=== PATIENT | male | born 1965 | race Caucasian/White ===

== ENCOUNTER 2019-01-01 12:47 | Outpatient (REF) | payer BC, SELFPAY ==
[2019-01-01 14:37] LABS: HCT 55.3 % (40.0-50.0); HGB 17.9 g/dL (13.5-17.5); Mean Corp. HGB Concentration 32.4 g/dL (32.0-36.0); Mean Corpuscular Hemoglobin 30.2 pg (27.0-33.0); Mean Corpuscular Volume 93.4 fL (80-95); Mean Platelet Volume 9.9 fL (8.0-11.0); Platelet Count 264 x1000/uL (130-400); RBC 5.92 m/cumm (4.50-6.00); RBC Distribution Width 12.6 % (11.8-14.1); White Blood Cell Count 8.08 k/cumm (4.4-10.8)
[2019-01-01 14:52] LABS: ALT 56 U/L (12-78); AST 30 U/L (15-37); Albumin 3.9 g/dL (3.4-5.0); Alkaline Phosphatase 85 U/L (46-116); Anion Gap 8.7 mmol/L (3-11); BUN 14 mg/dL (7-18); Bilirubin, Total 0.6 mg/dL (0.2-1.0); CO2 29.3 mmol/L (21.0-32.0); CREATININE 1.09 mg/dL (0.70-1.30); Calcium 9.3 mg/dL (8.5-10.1); Chloride 101 mmol/L (98-107); Cholesterol 170 mg/dL (50-200); Glucose 97 mg/dL (70-100); HDL Cholesterol 37 mg/dL (40-60); LDL CHOLESTEROL 123 mg/dL (<100); Potassium 4.1 mmol/L (3.5-5.1); Sodium 139 mmol/L (136-145); Total Protein 7.6 g/dL (6.4-8.2); Triglyceride 88 mg/dL (30-150)
[2019-01-05 14:45] LABS: Testosterone, Free 10.7 ng/dL (3.87-14.7); Testosterone, Total 369 ng/dL (240-950)
== END 2019-01-01 13:07 ==
LOC: NCHCN 12:47
PROVIDERS: PCP Nurse Practitioner Family; Visit Provider Family Medicine
DX: E29.1 Testicular hypofunction (principal); I10 Essential (primary) hypertension; E66.9 Obesity, unspecified
CPT/HCPCS: 80053; 80061; 83721; 84402; 84403; 85027

== ENCOUNTER 2020-05-19 12:39 | Outpatient (REF) | payer BC, SELFPAY ==
[2020-05-19 21:31] LABS: HGB 18.7 g/dL (13.5-17.5); MCH 30.2 pg (27.0-33.0); MCHC 32.1 % (32.0-36.0); MCV 93.9 fL (80-95); MPV 9.4 fL (8.0-11.0); Platelet Count 258 10^3/uL (130-400); RDW 12.1 % (11.8-14.1); RDW-SD 41.8 fL; WBC 8.48 10^3/uL (4.4-10.8)
[2020-05-19 21:47] LABS: HCT 58.2 % (40.0-50.0)
[2020-05-19 21:49] LABS: ALT 45 U/L (16-63); AST 34 U/L (15-37); Alkaline Phosphatase 72 U/L (46-116); Anion Gap 6.9 mmol/L (3-11); BUN 14 mg/dL (7-18); Bilirubin, Total 0.8 mg/dL (0.2-1.0); CO2 30.1 mmol/L (21.0-32.0); Calcium 9.3 mg/dL (8.5-10.1); Calculated LDL 121 mg/dL (<100); Chloride 102 mmol/L (98-107); Cholesterol 188 mg/dL (<200); Glucose 98 mg/dL (74-106); HDL Cholesterol 37 mg/dL (40-60); Potassium 4.3 mmol/L (3.5-5.1); Sodium 139 mmol/L (136-145); Total Protein 7.8 g/dL (6.4-8.2); Triglyceride 154 mg/dL (<150)
[2020-05-22 12:42] LABS: PSA, Screening 0.5 ng/mL (0.0-3.5)
[2020-05-26 15:05] LABS: Testosterone, Free 20.2 ng/dL (3.87-14.7); Testosterone, Total 775 ng/dL (240-950)
== END 2020-05-19 12:59 ==
LOC: NCHCN 12:39
PROVIDERS: PCP Nurse Practitioner Family; Visit Provider Family Medicine
DX: Z00.00 Encounter for general adult medical examination without abnormal findings (principal); I10 Essential (primary) hypertension; E29.1 Testicular hypofunction; C44.310 Basal cell carcinoma of skin of unspecified parts of face; E66.9 Obesity, unspecified; Z12.5 Encounter for screening for malignant neoplasm of prostate
CPT/HCPCS: 80053; 80061; 84153; 84402; 84403; 85027

== ENCOUNTER 2020-12-27 15:55 | Outpatient (CLI) | payer BC, SELFPAY ==
[2020-12-27 16:15] LABS: Abs Immature Grans 0.04 10^3/uL (0.0-0.06); Absolute Basophil Count 0.07 10^3/uL (0.0-0.2); Absolute Eosinophil Count 0.23 10^3/uL (0.0-0.7); Absolute Lymphocyte Count 2.65 10^3/uL (1.2-3.4); Absolute Monocyte Count 0.98 10^3/uL (0.1-0.8); Absolute Neutrophil Count 7.44 10^3/uL (1.2-6.7); Basophils % 0.6; HCT 51.5 % (40.0-50.0); HGB 17.3 g/dL (13.5-17.5); Immature Grans % 0.4; Lymphocytes % 23.2; MCH 30.9 pg (27.0-33.0); MCHC 33.6 % (32.0-36.0); MCV 92.1 fL (80-95); MPV 8.7 fL (8.0-11.0); Monocytes % 8.6; Neutrophils % 65.2; Nucleated RBC 0 %; Platelet Count 272 10^3/uL (130-400); RBC 5.59 10^6/uL (4.36-5.78); RDW 11.8 % (11.8-14.1); RDW-SD 40.3 fL; WBC 11.41 10^3/uL (4.4-10.8)
== END 2020-12-27 15:56 | disposition home or self-care (01) ==
PROVIDERS: PCP Nurse Practitioner Family; Visit Provider Internal Medicine Hematology & Oncology
DX: D75.1 Secondary polycythemia (principal)
CPT/HCPCS: 36415; 85025

== ENCOUNTER 2020-12-28 13:47 | Emergency (ER) | payer BC, SELFPAY ==
[2020-12-28 14:03] VITALS: BP 162/88; PULSE 80; RESP 18; TEMP 36.3; O2SAT 95
--- NOTE | 2020-12-28 14:07 | ED.GENADUL_ITS ---
Discharge Plan Disposition Patient Disposition: HOME Condition: Stable Discharge Details Clinical Impression: Flank pain Primary Care Provider: Tiffany Gooden ED Provider: Kj Oglesby Home Meds and New Rx's Prescriptions: New cyclobenzaprine 7.5 mg tablet 7.5 mg PO TID PRNQty: 10 RF: 0 naproxen [Naprosyn] 500 mg tablet 500 mg PO BID PRNQty: 20 RF: 0 Continued multivitamin Tablet 1 tab PO DAILY RF: 0 lisinopril 20 mg Tablet 20 mg PO DAILY RF: 0 aspirin 81 mg Tablet,Delayed Release (Dr/Ec) 81 mg PO DAILY RF: 0 testosterone 1 % (25 mg/2.5gram) Gel In Packet 1 packet TRANSDERMAL DAILY RF: 0 Discontinued ibuprofen [Advil] 200 MG tablet 400 mg PO DIRECTED RF: 0 Discharge Instructions Instructions: Flank Pain (ED) Additional Instructions: Urinalysis and CT unremarkable. Naprosyn and Flexeril as directed. Remember Flexeril may cause drowsiness. Gentle stretching as tolerated. Cool and/or warm compresses every 2 hours for 20 minutes. Please watch for new or worsening symptoms and return to the ER for any concerns. Lastly, I do recommend reaching out your primary care provider and following up in the next week for reevaluation. Discharge Data Discharge Date/Time-TO BE ENTERED AT DEPARTURE: 12/28/20 17:06 Medical Decision Making <Rebecca Veloz - Last Filed: 12/29/20 12:41> 55-year-old male presents to the ER chief complaint of right flank pain which has been ongoing for approximately 3 weeks worse today. He reports posterior right flank pain which radiates around to his right anterior abdomen. Denies any nausea vomiting no diarrhea. He denies any problems urinating blood in his urine or dark urine. Denies any fever or chills. He reports is a dull constant pain which increases with movement and heavy lifting. At this time I do suspect musculoskeletal, will get a urine sample and CT abdomen pelvis without contrast to rule out kidney stone. Urinalysis was negative for leukocytes nitrites or blood Patient reevaluation: States pain is much improved after Flexeril and ibuprofen. Discussed pending CT results with patient who verbalizes understanding. At this time CT result is pending. Care is to be handed off to oncoming provider KONSTANTIN Hunter pending CT results. Patient reevaluation, <KONSTANTIN Negro - Last Filed: 12/28/20 17:02> This is a 55-year-old gentleman who was signed out to me by my colleague SHAHLA Veloz at shift change. Please see her original HPI and examination. In short patient reports right flank pain is worse with movement for the past couple of weeks. He denies any other symptoms. Patient was given a muscle relaxer and anti-inflammatory and reports to me that his pain was initially a 7 out of 10 and now is barely there is a 1 out of 10. He states the pain is worse with movement. Denies fever, chest pain, nausea, vomiting, dysuria, hematuria. Urinalysis was unremarkable, at time of signout awaiting CT imaging. CT imaging, renal colic protocol, read by radiology as the gallbladder surgically absent. The biliary tree is not dilated. Hepatic steatosis noted. No renal calculi nor dilatation of the collecting system. There are a few shotty lymph nodes in the right iliac chain. No gross lymphadenopathy in the abdomen or pelvis. No ascites. CT imaging discussed with patient. He is relieved and has no additional questions or concerns. He is comfortable treating this as musculoskeletal for the time being and if symptoms worsen or evolve he will return to the ER. Otherwise he will contact his primary care provider for outpatient reevaluation. Medical Records Medical records reviewed: Yes I reviewed the patient's medical records. HPI <Rebecca Veloz - Last Filed: 12/29/20 12:41> General Mode of arrival: ambulatory . Date/Time Provider Initiated Documentation: 12/28/20 14:06 . Limitations to Documentation: no limitations . Information obtained by: patient . HPI Narrative: 55-year-old male presents to the ER chief complaint of right flank pain which has been ongoing for approximately 3 weeks worse today. He reports posterior right flank pain which radiates around to his right anterior abdomen. Denies any nausea vomiting no diarrhea. He denies any problems urinating blood in his urine or dark urine. Denies any fever or chills. He reports is a dull constant pain which increases with movement and heavy lifting. Related Data Home Medications Medication Instructions Recorded Confirmed aspirin 81 mg PO DAILY 12/28/20 12/28/20 cyclobenzaprine 7.5 mg PO TID PRN #10 tab 12/28/20 lisinopril 20 mg PO DAILY 12/28/20 12/28/20 multivitamin 1 tab PO DAILY 12/28/20 12/28/20 naproxen [Naprosyn] 500 mg PO BID PRN #20 tab 12/28/20 testosterone 1 packet TRANSDERMAL DAILY 12/28/20 12/28/20 Previous Rx's Medication Instructions Recorded cyclobenzaprine 7.5 mg PO TID PRN #10 tab 12/28/20 naproxen [Naprosyn] 500 mg PO BID PRN #20 tab 12/28/20 Allergies Allergy/AdvReac Type Severity Reaction Status Date / Time No Known Allergies Allergy Unverified 04/02/13 20:11 General Stated Complaint: FlankPain MARQUEZ: 3 Review of Systems <Rebecca Veloz - Last Filed: 12/29/20 12:41> Narrative: Constitutional: Negative for weight loss, alert and oriented, well groomed, obese body habitus, appears comfortable. HEENT: Denies trauma, headaches, blurry vision, nasal discharge, sore throat, trouble swallowing. Chest: Denies chest pain, palpitations, irregular rhythm, hypertension. Respiratory: Denies Shortness of breath, cough, hemoptysis. GI: Denies nausea, vomiting, diarrhea, constipation. Musculoskeletal:Right flank pain which radiates to quadrant. Increased pain with movement. Does endorse heavy lifting recently. : Denies dysuria, hematuria, flank pain, rectal bleeding. Neuro: Denies dizziness, blurry vision, weakness, syncope, headache or facial numbness. Hematologic: Denies easy bruising, intolerance to heat or cold, hair loss. PFSH <Rebecca Veloz - Last Filed: 12/29/20 12:41> Social History Smoking/Tobacco Use Status: Never Smoking risk assessment performed?: Yes Drug use: Never Do you feel safe at home: Yes Do you feel safe in your relationship?: Yes Exam <Rebecca Veloz - Last Filed: 12/29/20 12:41> Narrative Exam Narrative: Constitutional: Alert and oriented x3. Appears stated age. Normal body habitus. Head: Normocephalic, no trauma. Eyes: Pupils PERRLA, Red reflex noted, EOM's intact. Eyelids symmetrical without lesions, discharge, or swelling. ENT: Bilateral TM's WNL, External ear normal to inspection, no mastoid TTP, swelling, or erythema, Nasal turbinates WNL, no nasal discharge. Normal dentition, Posterior pharynx WNL, no exudate. Chest: RRR, Normal S1, S2, distal pulses intact. Resp: Lungs clear to auscultation bilaterally, no wheezes, rales, or rhonchi. Abdomen: Soft, nontender to palpation. Musculoskeletal: Normal gait, 5/5 strength to all four extremities. No midline T or L-spine tenderness Skin: No suspicious rashes or lesions. Capillary refill less than 2 sec. Neurologic: Cranial nerves II-XII intact. Alert and oriented x 3. DTR's intact. Hematologic/Lymphatic: No ecchymosis, no lymphadenopathy. Course <Rebecca Veloz - Last Filed: 12/29/20 12:41> Vital Signs Vital signs: Vital Signs Temperature 36.3 C L 12/28/20 14:03 Pulse 80 12/28/20 14:03 Respiratory Rate 18 12/28/20 14:03 Blood Pressure 162/88 H 12/28/20 14:03 Pulse Oximetry 95 12/28/20 14:03 Temperature 36.3 C L 12/28/20 14:03 Temperature Source Skin 12/28/20 14:03 Pulse 80 12/28/20 14:03 Respiratory Rate 18 12/28/20 14:03 Blood Pressure 162/88 H 12/28/20 14:03 Blood Pressure Position Sitting 12/28/20 14:03 Pulse Oximetry 95 12/28/20 14:03 Oxygen Delivery Method Room Air 12/28/20 14:03 Oxygen Flow Rate 0 12/28/20 14:03 Pain Level 5 12/28/20 14:03 Sign Out <Rebecca Veloz - Last Filed: 12/29/20 12:41> Sign Out Data: Sign Out Comment: Pending CT renal Colic, Suspect Musculoskeletal Last updated by Rebecca Veloz at 12/28/20 16:11
[2020-12-28 14:24] LABS: Bilirubin Negative (Negative); Blood Negative (Negative); Clarity Clear (Clear); Glucose Negative (Negative); Ketones Negative (Negative); Leukocyte Esterase Negative (Negative); Nitrite Negative (Negative); Specific Gravity 1.015 (1.005-1.025); Urobilinogen 0.2 EU/dL (Up TO 0.2)
--- NOTE | 2020-12-28 14:29 | DI.CT_ITS ---
Exam(s) CT RENAL COLIC WO EXAM: CT RENAL COLIC WO CLINICAL HISTORY: Right flank pain. TECHNIQUE: Imaging Protocol: Axial computed tomography images with coronal and sagittal reformatted images were created and reviewed CONTRAST MATERIAL: Intravenous: none Oral: None COMPARISON: CT CHEST ABD PELVIS WITH CONTRAST from 04/03/2013 CT CHEST ABD PELVIS WITH CONTRAST from 04/03/2013 FINDINGS: VISUALIZED LUNG BASES: No nodules nor pleural effusions evident. ABDOMEN: There is no ascites. LIVER: Liver is somewhat dense implying an element of steatosis. There are no obvious discrete focal hepatic lesions evident on this noninfused study. GALLBLADDER/BILIARY: Gallbladder surgically absent. CBD is not dilated. PANCREAS: No evidence of pancreatic mass nor dilatation of the pancreatic duct. SPLEEN: Spleen is not enlarged. No obvious intrasplenic lesions. ADRENALS: There are no significant adrenal masses. KIDNEYS:No cysts evident. No solid renal masses. No calculi nor hydronephrosis. . ABDOMINAL AORTA: Abdominal aorta is not enlarged. LYMPH NODES: There is no retroperitoneal nor paraaortic adenopathy. ABDOMINAL WALL/GI: No evidence of significant anterior abdominal wall hernia. No bowel obstruction. PELVIS: LYMPH NODES: Few small shoddy lymph nodes are noted in the right iliac chain. No gross lymphadenopat hy in the pelvis and inguinal regions. GI: No evidence of appendicitis.No evidence of sigmoid diverticulitis. URINARY BLADDER: Urinary bladder wall is uniformly slightly thickened. No diverticuli. No obvious a symmetric mass. No calculi in nondistended urinary bladder. REPRODUCTIVE: Calcifications noted in the right side of the prostate gland. Prostate gland itself is upper normal size. Seminal vesicles unremarkable. OSSEOUS: No significant osseous lesions. Chronic disc space narrowing L5-S1 level. IMPRESSION: 1. The gallbladder surgically absent. The biliary tree is not dilated. 2. Hepatic steatosis noted. 3. No renal calculi nor dilatation of the collecting systems. There are few shotty lymph nodes in the right iliac chain. No gross lymphadenopathy in the abdomen p christophe. No ascites. RADIATION DOSE DELIVERED: 1,407.76mGy.cm Total DLP DATA REPOSITORY: All CT scans at this facility are submitted to the National Radiology Data Registry (NRDR) Dose Index Registry (DIR) with the [employer] (A[employer]). RADIATION OPTIMIZATION: All CT scans at this facility use at least one of these dose optimization te chniques: automated exposure control; mA and/or kV adjustment per patient size (includes targeted exa ms where dose is matched to clinical indication); or iterative reconstruction.
[2020-12-28] MEDS: Cyclobenzaprine 10 MG TAB PO (15:01)
[2020-12-28] MEDS: Ibuprofen 800 MG TAB PO (15:01)
== END 2020-12-28 17:06 | disposition home or self-care (01) ==
PROVIDERS: Registered Nurse Emergency; Emergency Provider Physician Assistant; PCP Nurse Practitioner Family
DX: M54.5 Low back pain (principal)
CPT/HCPCS: 99284; 74176; 81003

== ENCOUNTER 2021-03-21 13:08 | Outpatient (CLI) | payer BC, SELFPAY ==
[2021-03-21 10:03] LABS: Abs Immature Grans 0.04 10^3/uL (0.0-0.06); Absolute Basophil Count 0.05 10^3/uL (0.0-0.2); Absolute Eosinophil Count 0.16 10^3/uL (0.0-0.7); Absolute Lymphocyte Count 2.06 10^3/uL (1.2-3.4); Absolute Monocyte Count 0.84 10^3/uL (0.1-0.8); Absolute Neutrophil Count 5.76 10^3/uL (1.2-6.7); Basophils % 0.6; Eosinophils % 1.8; HCT 51.9 % (40.0-50.0); HGB 17.3 g/dL (13.5-17.5); Immature Grans % 0.4; Lymphocytes % 23.1; MCH 30.8 pg (27.0-33.0); MCHC 33.3 % (32.0-36.0); MCV 92.5 fL (80-95); MPV 8.8 fL (8.0-11.0); Monocytes % 9.4; Neutrophils % 64.7; Nucleated RBC 0 %; Platelet Count 243 10^3/uL (130-400); RBC 5.61 10^6/uL (4.36-5.78); RDW 11.7 % (11.8-14.1); RDW-SD 39.9 fL; WBC 8.91 10^3/uL (4.4-10.8)
[2021-03-21 10:15] LABS: ALT 33 U/L (16-63); AST 17 U/L (15-37); Albumin 3.7 g/dL (3.4-5.0); Alkaline Phosphatase 71 U/L (46-116); Anion Gap 6.3 mmol/L (3-11); BUN 13 mg/dL (7-18); Bilirubin, Total 0.6 mg/dL (0.2-1.0); CO2 27.7 mmol/L (21.0-32.0); CREATININE 1.1 mg/dL (0.70-1.30); Chloride 104 mmol/L (98-107); Glucose 109 mg/dL (74-106); Potassium 4.2 mmol/L (3.5-5.1); Sodium 138 mmol/L (136-145); Total Protein 7.8 g/dL (6.4-8.2)
[2021-03-22 15:22] LABS: Erythropoietin 7.7 mIU/mL (2.6 - 18.5)
[2021-03-29 09:22] LABS: Testosterone, Total 514 ng/dL (240-950)
== END 2021-03-21 13:09 | disposition home or self-care (01) ==
LOC: LBO 13:09
PROVIDERS: PCP Nurse Practitioner Family; Visit Provider Internal Medicine Hematology & Oncology
DX: D75.1 Secondary polycythemia (principal)
CPT/HCPCS: 36415; 80053; 82668; 84402; 84403; 85025

== ENCOUNTER 2021-05-24 09:52 | Outpatient (REF) | payer BC, SELFPAY ==
[2021-05-24 21:12] LABS: ALT 36 U/L (16-63); AST 23 U/L (15-37); Albumin 3.9 g/dL (3.4-5.0); Alkaline Phosphatase 70 U/L (46-116); Anion Gap 9.6 mmol/L (3-11); BUN 19 mg/dL (7-18); Bilirubin, Total 0.6 mg/dL (0.2-1.0); CO2 27.4 mmol/L (21.0-32.0); Calcium 9.3 mg/dL (8.5-10.1); Calculated LDL 94 mg/dL (<100); Chloride 104 mmol/L (98-107); Cholesterol 160 mg/dL (<200); Glucose 97 mg/dL (74-106); HDL Cholesterol 40 mg/dL (40-60); Potassium 4.5 mmol/L (3.5-5.1); Sodium 141 mmol/L (136-145); Total Protein 7.4 g/dL (6.4-8.2); Triglyceride 131 mg/dL (<150)
== END 2021-05-24 09:53 | disposition home or self-care (01) ==
LOC: NCHCN 09:52
PROVIDERS: PCP Nurse Practitioner Family; Visit Provider Family Medicine
DX: Z00.00 Encounter for general adult medical examination without abnormal findings (principal); I10 Essential (primary) hypertension; E66.9 Obesity, unspecified
CPT/HCPCS: 80053; 80061

== ENCOUNTER 2021-06-04 03:59 | Outpatient (CLI) | payer BC, SELFPAY ==
[2021-06-04 07:17] LABS: Abs Immature Grans 0.02 10^3/uL (0.0-0.06); Absolute Basophil Count 0.04 10^3/uL (0.0-0.2); Absolute Neutrophil Count 4.54 10^3/uL (1.2-6.7); Basophils % 0.5; Eosinophils % 2.7; HCT 48.8 % (40.0-50.0); HGB 15.9 g/dL (13.5-17.5); Immature Grans % 0.3; Lymphocytes % 27.4; MCH 30.5 pg (27.0-33.0); MCHC 32.6 % (32.0-36.0); MCV 93.7 fL (80-95); Monocytes % 6.8; Neutrophils % 62.3; Nucleated RBC 0 %; Platelet Count 204 10^3/uL (130-400); RBC 5.21 10^6/uL (4.36-5.78); RDW 11.5 % (11.8-14.1); RDW-SD 39.7 fL
[2021-06-04 08:49] LABS: ALT 30 U/L (16-63); AST 20 U/L (15-37); Albumin 3.8 g/dL (3.4-5.0); Alkaline Phosphatase 73 U/L (46-116); Anion Gap 5.4 mmol/L (3-11); BUN 19 mg/dL (7-18); Bilirubin, Total 0.6 mg/dL (0.2-1.0); CO2 32.6 mmol/L (21.0-32.0); CREATININE 1.1 mg/dL (0.70-1.30); Calcium 8.9 mg/dL (8.5-10.1); Chloride 102 mmol/L (98-107); Glucose 121 mg/dL (74-106); Potassium 4.1 mmol/L (3.5-5.1); Sodium 140 mmol/L (136-145); Total Protein 7.5 g/dL (6.4-8.2)
[2021-06-05 20:08] LABS: Erythropoietin 6.5 mIU/mL (2.6 - 18.5)
[2021-06-20 08:55] LABS: Testosterone, Free 4.86 ng/dL (3.87-14.7); Testosterone, Total 180 ng/dL (240-950)
== END 2021-06-04 04:00 | disposition home or self-care (01) ==
LOC: LBO 03:59
PROVIDERS: PCP Nurse Practitioner Family; Visit Provider Internal Medicine Hematology & Oncology
DX: D75.1 Secondary polycythemia (principal)
CPT/HCPCS: 36415; 80053; 82668; 84402; 84403; 85025

== ENCOUNTER 2022-01-01 02:09 | Outpatient (CLI) | payer BC, SELFPAY ==
[2022-01-01 13:06] LABS: Abs Immature Grans 0.05 10^3/uL (0.0-0.06); Absolute Basophil Count 0.07 10^3/uL (0.0-0.2); Absolute Eosinophil Count 0.24 10^3/uL (0.0-0.7); Absolute Lymphocyte Count 2.38 10^3/uL (1.2-3.4); Absolute Monocyte Count 0.92 10^3/uL (0.1-0.8); Absolute Neutrophil Count 6.22 10^3/uL (1.2-6.7); Basophils % 0.7; Eosinophils % 2.4; HCT 46.9 % (40.0-50.0); HGB 15.1 g/dL (13.5-17.5); Immature Grans % 0.5; Lymphocytes % 24.1; MCH 30.8 pg (27.0-33.0); MCHC 32.2 % (32.0-36.0); MCV 96 fL (80-95); MPV 8.7 fL (8.0-11.0); Monocytes % 9.3; Platelet Count 241 10^3/uL (130-400); RBC 4.91 10^6/uL (4.36-5.78); RDW 11.8 % (11.8-14.1); RDW-SD 41.1 fL; WBC 9.88 10^3/uL (4.4-10.8)
[2022-01-01 13:21] LABS: ALT 32 U/L (16-63); AST 20 U/L (15-37); Albumin 3.9 g/dL (3.4-5.0); Alkaline Phosphatase 84 U/L (46-116); BUN 22 mg/dL (7-18); Bilirubin, Total 0.7 mg/dL (0.2-1.0); Calcium 8.9 mg/dL (8.5-10.1); Chloride 102 mmol/L (98-107); Glucose 95 mg/dL (74-106); Potassium 3.8 mmol/L (3.5-5.1); Sodium 139 mmol/L (136-145); Total Protein 7.9 g/dL (6.4-8.2)
[2022-01-02 16:35] LABS: Erythropoietin 12.3 mIU/mL (2.6 - 18.5)
[2022-01-04 13:29] LABS: Testosterone, Free 6.84 ng/dL (3.87-14.7); Testosterone, Total 228 ng/dL (240-950)
== END 2022-01-01 02:10 | disposition home or self-care (01) ==
LOC: LBO 02:09
PROVIDERS: PCP Nurse Practitioner Family; Visit Provider Internal Medicine Hematology & Oncology
DX: D75.1 Secondary polycythemia (principal)
CPT/HCPCS: 36415; 80053; 82668; 84402; 84403; 85025

== ENCOUNTER 2022-05-20 13:22 | Outpatient (CLI) | payer BC, SELFPAY ==
[2022-05-20 13:25] LABS: Abs Immature Grans 0.02 10^3/uL (0.0-0.06); Absolute Basophil Count 0.05 10^3/uL (0.0-0.2); Absolute Eosinophil Count 0.19 10^3/uL (0.0-0.7); Absolute Lymphocyte Count 2.07 10^3/uL (1.2-3.4); Absolute Monocyte Count 0.58 10^3/uL (0.1-0.8); Absolute Neutrophil Count 5.64 10^3/uL (1.2-6.7); Basophils % 0.6; Eosinophils % 2.2; HCT 50.1 % (40.0-50.0); HGB 16.4 g/dL (13.5-17.5); Immature Grans % 0.2; Lymphocytes % 24.2; MCH 30.4 pg (27.0-33.0); MCHC 32.7 % (32.0-36.0); MCV 93 fL (80-95); MPV 8.9 fL (8.0-11.0); Monocytes % 6.8; Platelet Count 244 10^3/uL (130-400); RBC 5.39 10^6/uL (4.36-5.78); RDW 11.6 % (11.8-14.1); RDW-SD 39.6 fL; WBC 8.55 10^3/uL (4.4-10.8)
[2022-05-20 13:57] LABS: ALT 30 U/L (16-63); AST 24 U/L (15-37); Alkaline Phosphatase 84 U/L (46-116); Anion Gap 7.4 mmol/L (3-11); BUN 18 mg/dL (7-18); Bilirubin, Total 0.6 mg/dL (0.2-1.0); CO2 32.6 mmol/L (21.0-32.0); Calcium 9.6 mg/dL (8.5-10.1); Chloride 102 mmol/L (98-107); Glucose 118 mg/dL (74-106); Potassium 4.1 mmol/L (3.5-5.1); Sodium 142 mmol/L (136-145); Total Protein 7.8 g/dL (6.4-8.2)
== END 2022-05-20 13:23 | disposition home or self-care (01) ==
LOC: LBO 13:28
PROVIDERS: PCP Nurse Practitioner Family; Visit Provider Nurse Practitioner Adult Health
DX: D75.1 Secondary polycythemia (principal)
CPT/HCPCS: 36415; 80053; 85025

== ENCOUNTER 2023-01-02 01:42 | Outpatient (CLI) | payer BC, SELFPAY ==
[2023-01-02 16:04] LABS: Abs Immature Grans 0.05 10^3/uL (0.0-0.06); Absolute Basophil Count 0.08 10^3/uL (0.0-0.2); Absolute Eosinophil Count 0.25 10^3/uL (0.0-0.7); Absolute Lymphocyte Count 2.93 10^3/uL (1.2-3.4); Absolute Monocyte Count 1.03 10^3/uL (0.1-0.8); Basophils % 0.7; Eosinophils % 2.1; HCT 47.7 % (40.0-50.0); HGB 15.9 g/dL (13.5-17.5); Immature Grans % 0.4; Lymphocytes % 24.8; MCH 30.6 pg (27.0-33.0); MCHC 33.3 % (32.0-36.0); MCV 92 fL (80-95); MPV 8.5 fL (8.0-11.0); Monocytes % 8.7; Neutrophils % 63.3; Platelet Count 279 10^3/uL (130-400); RBC 5.19 10^6/uL (4.36-5.78); RDW 11.6 % (11.8-14.1); RDW-SD 39.1 fL
[2023-01-02 16:06] LABS: Absolute Neutrophil Count 7.47 10^3/uL (1.2-6.7)
[2023-01-02 16:35] LABS: ALT 40 U/L (16-63); AST 31 U/L (15-37); Albumin 4.2 g/dL (3.4-5.0); Alkaline Phosphatase 84 U/L (46-116); Anion Gap 7.3 mmol/L (3-11); BUN 23 mg/dL (7-18); Bilirubin, Total 0.6 mg/dL (0.2-1.0); CO2 28.7 mmol/L (21.0-32.0); CREATININE 1.2 mg/dL (0.70-1.30); Calcium 9.9 mg/dL (8.5-10.1); Chloride 103 mmol/L (98-107); Estimated GFR 69.66 (mL/min/1.73m2); Glucose 94 mg/dL (74-106); Potassium 4.1 mmol/L (3.5-5.1); Sodium 139 mmol/L (136-145); Total Protein 8.2 g/dL (6.4-8.2)
== END 2023-01-02 01:43 | disposition home or self-care (01) ==
PROVIDERS: PCP Nurse Practitioner Family; Visit Provider Nurse Practitioner Adult Health
DX: D75.1 Secondary polycythemia (principal)
CPT/HCPCS: 36415; 80053; 85025

== ENCOUNTER 2023-01-21 17:44 | Outpatient (REF) | payer BC, SELFPAY ==
[2023-01-21 15:32] LABS: HCT 47.3 % (40.0-50.0); HGB 15.4 g/dL (13.5-17.5); MCH 30.6 pg (27.0-33.0); MCHC 32.6 % (32.0-36.0); MCV 94 fL (80-95); MPV 9.5 fL (8.0-11.0); Platelet Count 258 10^3/uL (130-400); RBC 5.04 10^6/uL (4.36-5.78); RDW 11.7 % (11.8-14.1); RDW-SD 40.6 fL; WBC 6.86 10^3/uL (4.4-10.8)
[2023-01-21 16:00] LABS: ALT 27 U/L (16-63); AST 20 U/L (15-37); Albumin 3.9 g/dL (3.4-5.0); Alkaline Phosphatase 84 U/L (46-116); Anion Gap 5.8 mmol/L (3-11); BUN 20 mg/dL (7-18); Bilirubin, Total 0.6 mg/dL (0.2-1.0); CO2 31.2 mmol/L (21.0-32.0); Calcium 9.4 mg/dL (8.5-10.1); Calculated LDL 107 mg/dL (<100); Chloride 103 mmol/L (98-107); Cholesterol 180 mg/dL (<200); Glucose 100 mg/dL (74-106); HDL Cholesterol 45 mg/dL (40-60); Potassium 4.3 mmol/L (3.5-5.1); Sodium 140 mmol/L (136-145); Total Protein 7.6 g/dL (6.4-8.2); Triglyceride 142 mg/dL (<150)
== END 2023-01-21 17:45 | disposition home or self-care (01) ==
LOC: NCHCN 17:44
PROVIDERS: PCP Nurse Practitioner Family; Visit Provider Family Medicine
DX: Z00.00 Encounter for general adult medical examination without abnormal findings (principal); I10 Essential (primary) hypertension; D75.1 Secondary polycythemia; E66.9 Obesity, unspecified
CPT/HCPCS: 80053; 80061; 85027

== ENCOUNTER 2024-01-21 08:12 | Outpatient (REF) | payer BC, SELFPAY ==
[2024-01-21 15:22] LABS: ALT 40 U/L (16-63); AST 25 U/L (15-37); Albumin 3.9 g/dL (3.4-5.0); Alkaline Phosphatase 82 U/L (46-116); Anion Gap 8.7 mmol/L (3-11); BUN 25 mg/dL (7-18); Bilirubin, Total 0.6 mg/dL (0.2-1.0); CO2 27.3 mmol/L (21.0-32.0); CREATININE 1.1 mg/dL (0.70-1.30); Calcium 9.4 mg/dL (8.5-10.1); Chloride 104 mmol/L (98-107); Estimated GFR 76.85 (mL/min/1.73m2); Glucose 116 mg/dL (74-106); Potassium 4.4 mmol/L (3.5-5.1); Sodium 140 mmol/L (136-145); Total Protein 7.4 g/dL (6.4-8.2)
[2024-01-21 16:16] LABS: Vitamin D 25 Total 39.9 ng/mL (30-100)
[2024-01-21 16:56] LABS: Calculated LDL 100 mg/dL (<100); Cholesterol 172 mg/dL (<200); HDL Cholesterol 47 mg/dL (40-60); Triglyceride 129 mg/dL (<150)
== END 2024-01-21 08:13 | disposition home or self-care (01) ==
LOC: NCHCN 08:12
PROVIDERS: PCP Nurse Practitioner Family; Visit Provider Family Medicine
DX: Z00.00 Encounter for general adult medical examination without abnormal findings (principal)
CPT/HCPCS: 80053; 80061; 82306

== ENCOUNTER 2024-02-05 05:10 | Outpatient (CLI) | payer BC, SELFPAY ==
[2024-02-05 07:42] LABS: Abs Immature Grans 0.04 10^3/uL (0.0-0.06); Absolute Basophil Count 0.05 10^3/uL (0.0-0.2); Absolute Eosinophil Count 0.23 10^3/uL (0.0-0.7); Absolute Lymphocyte Count 2.28 10^3/uL (1.2-3.4); Absolute Monocyte Count 0.49 10^3/uL (0.1-0.8); Absolute Neutrophil Count 4.46 10^3/uL (1.2-6.7); Basophils % 0.7 %; HCT 46.3 % (40.0-50.0); HGB 15.3 g/dL (13.5-17.5); Immature Grans % 0.5 %; Lymphocytes % 30.2 %; MCH 30.5 pg (27.0-33.0); MCV 92 fL (80-95); MPV 8.8 fL (8.0-11.0); Monocytes % 6.5 %; Neutrophils % 59.1 %; Platelet Count 223 10^3/uL (130-400); RBC 5.01 10^6/uL (4.36-5.78); RDW-SD 41.1 fL; WBC 7.55 10^3/uL (4.4-10.8)
[2024-02-05 08:35] LABS: ALT 38 U/L (16-63); AST 22 U/L (15-37); Albumin 3.7 g/dL (3.4-5.0); Alkaline Phosphatase 79 U/L (46-116); Anion Gap 9.2 mmol/L (3-11); BUN 25 mg/dL (7-18); Bilirubin, Total 0.8 mg/dL (0.2-1.0); CO2 28.8 mmol/L (21.0-32.0); CREATININE 1.1 mg/dL (0.70-1.30); Calcium 9.1 mg/dL (8.5-10.1); Chloride 104 mmol/L (98-107); Estimated GFR 76.85 (mL/min/1.73m2); Glucose 172 mg/dL (74-106); Sodium 142 mmol/L (136-145); Total Protein 7.6 g/dL (6.4-8.2)
== END 2024-02-05 05:11 | disposition home or self-care (01) ==
LOC: LBO 05:10
PROVIDERS: PCP Nurse Practitioner Family; Visit Provider Nurse Practitioner Adult Health
DX: D75.1 Secondary polycythemia (principal)
CPT/HCPCS: 36415; 80053; 85025

== ENCOUNTER 2025-02-07 13:57 | Outpatient (REF) | payer BC, SELFPAY ==
[2025-02-07 14:48] LABS: Abs Immature Grans 0.05 10^3/uL (0.0-0.06); Absolute Basophil Count 0.07 10^3/uL (0.0-0.2); Absolute Lymphocyte Count 2.04 10^3/uL (1.2-3.4); Absolute Neutrophil Count 4.74 10^3/uL (1.2-6.7); Basophils % 0.9 %; Eosinophils % 2.6 %; HCT 47.6 % (40.0-50.0); HGB 15.6 g/dL (13.5-17.5); Immature Grans % 0.6 %; Lymphocytes % 26.2 %; MCH 30.1 pg (27.0-33.0); MCHC 32.8 % (32.0-36.0); MCV 92 fL (80-95); MPV 9.2 fL (8.0-11.0); Neutrophils % 60.7 %; Platelet Count 262 10^3/uL (130-400); RBC 5.18 10^6/uL (4.36-5.78); RDW 11.9 % (11.8-14.1); RDW-SD 40.5 fL
[2025-02-07 16:53] LABS: ALT 46 U/L (16-63); AST 29 U/L (15-37); Alkaline Phosphatase 93 U/L (46-116); Anion Gap 9.7 mmol/L (3-11); BUN 19 mg/dL (7-18); Bilirubin, Total 0.8 mg/dL (0.2-1.0); CO2 25.3 mmol/L (21.0-32.0); CREATININE 0.9 mg/dL (0.70-1.30); Calcium 9.3 mg/dL (8.5-10.1); Calculated LDL 129 mg/dL (<100); Chloride 103 mmol/L (98-107); Cholesterol 199 mg/dL (<200); Estimated GFR 97.17 (mL/min/1.73m2); Glucose 105 mg/dL (74-106); HDL Cholesterol 45 mg/dL (>or=40); Potassium 4.2 mmol/L (3.5-5.1); Sodium 138 mmol/L (136-145); Total Protein 7.7 g/dL (6.4-8.2); Triglyceride 126 mg/dL (<150)
[2025-02-07 23:08] LABS: PSA, Screening 0.6 ng/mL (<=4.5)
== END 2025-02-07 13:58 | disposition home or self-care (01) ==
LOC: NCHCN 13:57
PROVIDERS: PCP Nurse Practitioner Family; Visit Provider Family Medicine
DX: Z00.00 Encounter for general adult medical examination without abnormal findings (principal)
CPT/HCPCS: 80053; 80061; 84153; 85025

== ENCOUNTER 2025-04-27 15:10 | Outpatient (REF) | payer BC, SELFPAY ==
[2025-04-27 14:26] LABS: Abs Immature Grans 0.04 10^3/uL (0.0-0.06); HCT 50.1 % (40.0-50.0); HGB 16.6 g/dL (13.5-17.5); Immature Grans % 0.5 %; MCH 29.9 pg (27.0-33.0); MCHC 33.1 % (32.0-36.0); MCV 90 fL (80-95); MPV 8.8 fL (8.0-11.0); Platelet Count 246 10^3/uL (130-400); RBC 5.55 10^6/uL (4.36-5.78); RDW 11.8 % (11.8-14.1); RDW-SD 39.1 fL; WBC 8.62 10^3/uL (4.4-10.8)
[2025-04-27 20:59] LABS: ALT 46 U/L (16-63); AST 27 U/L (15-37); Albumin 4.2 g/dL (3.4-5.0); Alkaline Phosphatase 101 U/L (46-116); Anion Gap 6.7 mmol/L (3-11); BUN 14 mg/dL (7-18); Bilirubin, Total 0.5 mg/dL (0.2-1.0); CO2 32.3 mmol/L (21.0-32.0); Calcium 9.6 mg/dL (8.5-10.1); Chloride 102 mmol/L (98-107); Estimated GFR 75.90 (mL/min/1.73m2); Glucose 151 mg/dL (74-106); Potassium 3.8 mmol/L (3.5-5.1); Sodium 141 mmol/L (136-145); Total Protein 8.0 g/dL (6.4-8.2)
== END 2025-04-27 15:11 | disposition home or self-care (01) ==
LOC: NCHCN 15:10
PROVIDERS: PCP Nurse Practitioner Family; Visit Provider Family Medicine
DX: R07.9 Chest pain, unspecified (principal)
CPT/HCPCS: 80053; 85025

== ENCOUNTER 2025-05-09 09:01 | Outpatient (CLI) | payer BC, SELFPAY ==
--- NOTE | 2025-05-09 | DI.NM_ITS ---
APPROVED REPORT Exam: Exercise Treadmill Patient Location: Out-Patient Room/Bed: Stress Nurse: Re Quijano RN Ordering Provider:GRUPO WILSON, Contact Number: [phone] BMI: 44.24 Baseline Rhythm: Sinus Rhythm Comment: Incomplete RBBB Indications: Chest Pain Medical History Medical History: Central sleep apnea, obesity, HTN Cardiac Medications: Aspirin, Lisinopril Allergies: NKDA Cardiac Risk Factors: +family history, +HTN, +obesity Previous Cardiac Procedures: None Pretest Chest Pain Characteristics: None Exercise History: Physically active Physical Disabilities: None Lung Sounds: LCTA Heart Sounds: Distant, S1/S2 Stress Test Details Test: Exercise stress testing was performed using a Mehdi protocol. Nuclear Acquisition: Rest Tc-99m/Stress Tc-99m 1 day Rest Isotope: Tc-99m Sestamibi. Dose: 11.7 Date: 05/09/2025 Injection Time: 10:55 Stress Isotope: Tc-99m Sestamibi. Dose: 35.8 Date: 05/09/2025 Injection Time: 12:40 HR Resting HR Supine: 71 bpm Max Heart Rate (APMHR): 158 bpm Resting HR Standin bpm Target HR (85% APMHR): 134 bpm Max HR Achieved: 150 bpm % of APMHR: 95 Recovery HR: 90 bpm HR response to stress: Normal HR response to stress BP Resting BP Supine: 138/86 mmHg Resting BP Standin/90 mmHg Max BP: 220/90 mmHg Recovery BP: 150/84 mmHg BP response to stress: Normal blood pressure response to stress. ECG Resting ECG: Sinus Rhythm, Incomplete RBBB Ectopy: None Stress ECG: Sinus Tachycardia ST Change: No significant ST segment changes noted Arrhythmia: Incomplete RBBB Recovery ECG: Sinus Rhythm, Incomplete RBBB Recovery ST Change: No significant ST segment changes noted Recovery Arrhythmia: None Clinical Reason for Termination: Fatigue Stress Symptoms: General Fatigue Exercise duration: 7 min17 sec Highest Stage Reached: Stage 3: 3.4 mph at 14% grade. Exercise capacity: 9 METs Angina Score: None Nicholson Treadmill Score: 6 Rate Pressure Product: [id number] Stress ECG Conclusion 1. Resting electrocardiogram showed low voltage 2. Patient exercised on the Mehdi protocol and completed workload of 9 METS 3. Normal heart rate and blood pressure response to exercise. Patient achieved 95% of maximal predicted heart rate for age 4. There was no electrocardiographic evidence of myocardial ischemia 5. See MPI report Nicholson Treadmill Score is 6 which is Low risk. Stress Test Summary STAGE Time (mins) Speed (mph) Grade (%) HR BP SpO2 SYMPTOMS METS Supine 71 138/86 98% Standing 73 162/90 98% 1 3 1.7 10 111 182/100 98% 4.5 2 6 2.5 12 135 200/98 7 3 9 3.4 14 143 10 1 min recovery 130 220/90 98% 3 min recovery 91 184/80 98% 6 min recovery 90 150/84 98% Patient presented for stress portion of his MPI - was able to exercise to tolerance on treadmill. No adverse signs or symptoms reported before, during, or after treadmill portion of exam. Patient returned to nuclear medicine for post stress images in no apparent distress. MPI Conclusion Myocardial perfusion is normal. There is no ischemia or evidence of prior infarction Ejection fraction is 56% with normal wall motion
== END 2025-05-09 09:21 ==
PROVIDERS: PCP Family Medicine; Visit Provider Family Medicine
DX: R07.9 Chest pain, unspecified (principal)
CPT/HCPCS: 78452; 93017